=== PATIENT | male | born 1980 | race Caucasian/White ===

== ENCOUNTER → 2024-01-28 10:37 | Outpatient (REF) | payer OTHER, SELFPAY ==
[2024-01-28 12:29] LABS: TSH Reflex To Free T4 1.28 uIU/ml (0.47-4.68)
[2024-01-30 05:53] LABS: IgA 312 mg/dl (70-400)
== END ==
LOC: REG 10:37
PROVIDERS: ATTENDING PHYSICIAN Internal Medicine
DX: R19.4 Change in bowel habit (principal)
CPT/HCPCS: 36415; 82784; 84443

== ENCOUNTER 2024-02-10 22:26 | Emergency (ER) | payer OTHER, SELFPAY ==
[2024-02-10 22:26] VITALS: BMI 25.7
[2024-02-10 22:34] VITALS: BP 148/96
--- NOTE | 2024-02-10 22:43 | ED.GENMED ---
History of Present Illness
General
Chief Complaint: Abdominal Pain
Time Seen by Provider: 02/10/24 22:40
Travel History
Have you had any contact with someone who has COVID-19?: No
Do you have any symptoms of coronavirus? Fever > 100 degrees, chills, cough, shortness of breath, sore throat, loss of taste or smell, muscle aches, or headache?: No
History of Present Illness
History of Present Illness:
HPI: Patient presents with abdominal pain. He reports having pain in the right inguinal region after his right inguinal hernia repair for about 5 years but then was doing fine for the past 10 years or so. More recently he has been having some
increasing discomfort to the right inguinal region that now radiates to the right testicular region. He saw GI recently and is planning to have endoscopy and colonoscopy in the future. His father has a history of colon cancer. No significant
vomiting or diarrhea but does report some nausea.
EXAM:
GENERAL: Well appearing in no distress
HEENT: Moist oral mucosa
CARDIOVASCULAR: No murmurs, normal heart rate, regular rhythm, No chest wall tenderness
PULMONARY: No respiratory distress, breath sounds are clear and equal
ABDOMEN: Soft with no peritoneal signs, no significant tenderness however there is a small area of tenderness in the right mid inguinal region but no definite palpable hernia
NEUROLOGIC: Excellent strength all extremities, no coordination deficits
PSYCHIATRIC: Appropriate mental status, normal insight and judgement, appears somewhat anxious
EXTREMITIES: Nontender, no edema, moves all extremities equally
SKIN: No rash, no lesions
TIME OF INITIAL ENCOUNTER: 10:50 PM
NUMBER AND COMPLEXITY OF PROBLEMS ADDRESSED AT THE ENCOUNTER
� Chronic conditions affecting care: Had right inguinal hernia repair several years ago
� Acute Exacerbation and/or Progression of Chronic Illness: This is an acute problem
� Differential Diagnosis includes: Hernia mesh complication, recurrence of hernia, appendicitis unlikely, ureteral stone unlikely,
AMOUNT AND/OR COMPLEXITY OF DATA TO BE REVIEWED AND ANALYZED
� I performed an independent evaluation of and my interpretation is:
EKG:
CT: I personally reviewed CT imaging and see no acute abnormality; also radiologist notes no acute findings
X-rays:
Laboratory Studies: White count 10.5, hemoglobin 16.1, chemistries unremarkable, urinalysis unremarkable
Other:
� Review of other/old records: I reviewed records, the patient was seen here with peritonitis in 2019
� Clinical information was obtained by an independent historian: None needed
� Prescriptions/Medications Considered but not given:
� Further testing considered but not performed:
RISK OF COMPLICATIONS AND/OR MORBIDITY OR MORTALITY OF PATIENT MANAGEMENT
� Social determinants of health affecting care: Lives at home
� Discussion with other providers:
� Escalation of care including admission/observation vs risk of discharge considered: Obtain CT imaging. He was given IV fluids, Zofran, Toradol, will check labs. CT imaging unremarkable. He appears fairly comfortable on
reassessment at 2:05 AM. He will follow-up with GI.
Past History
Past History
ED Past Medical History: None and Other (Lymes disease �2, recent diagnosis of psoriasis treated with topical medication)
ED Past Surgical History: Other (Right inguinal herniorrhaphy)
Social History
Tobacco: Non-smoker
Personal: Partner
Living: with family
Employment: Employed
Phy Exam
Physical Exam
Physical Exam:
See HPI
Course
Orders/Labs/Results
Orders:
Orders
02/10/24 22:53
0.9% Sodium Chloride 1000 ml [Nss] 1,000 ml IV BOLUS
Iohexol [Omnipaque] See Protocol PO NOW STA
Ketorolac [Toradol] 15 mg IV NOW STA
Ondansetron Injectable [Zofran] 4 mg IV NOW STA
02/10/24 23:37
Complete Blood Count/With Diff Urgent
Comprehensive Metabolic Panel Urgent
Lipase Urgent
02/11/24 00:44
Urinalysis Reflex To Culture Urgent
Date Specimen was Collected: 02/11/24
Time Specimen was Collected: 00:34
02/11/24 01:00
CT Abd/pel W Iv And Oral Contr Urgent
Reason For Exam: R groin pain worsening; prior hernia repair
Abnormal Lab Results
02/10/24
23:37
MPV 11.2 H fL
(7.4-10.4)
Absolute Neuts (auto) 7.0 H 10^3/uL
(1.4-6.5)
Absolute Monos (auto) 0.7 H 10^3/uL
(0.1-0.6)
02/10/24 23:37
02/10/24 23:37
Vital Signs
Initial and Last Documented VS:
Initial Vital Signs
Temp Pulse Resp BP Pulse Ox
97.8 F 86 18 148/96 98
02/10/24 22:34 02/10/24 22:34 02/10/24 22:34 02/10/24 22:34 02/10/24 22:34
Last Documented Vital Signs
Temp Pulse Resp BP Pulse Ox
97.8 F 86 18 148/96 98
02/10/24 22:34 02/10/24 22:34 02/10/24 22:34 02/10/24 22:34 02/10/24 22:34
*Critical Care Note
Total Time (30-74mins, 75-104mins- exclusive of procedures): Not Applicable
ED Attending Note
-
Portions of this chart may have been created with voice recognition software.� Occasional wrong word or��sound alike� substitutions may have occurred due to the inherent limitations of voice recognition software.
Discharge Plan
Departure
Prescriptions:
No Action
clindamycin HCl 150 MG capsule
3 cap PO TID Qty: 63 0RF
amoxicillin-pot clavulanate 1 TABLET tablet
1 tab PO Q12 Qty: 14 0RF
prednisone 20 MG tablet
40 mg PO DAILY Qty: 10 0RF
Referrals:
UNKNOWN - PT DOES,NOT KNOW [Family Provider] -
Interventions
Interventions:
*Risk Screen - Suicide Last Done: 02/10/24 22:34
*Neglect/Abuse Screening Last Done: 02/10/24 22:34
Discharge Date and Time
Print Language: POLISH
[2024-02-10] MEDS: OMNIPAQUE 50 ML PO (23:18)
[2024-02-10] MEDS: NSS 1000 IV (23:40)
[2024-02-10] MEDS: TORADOL 15 MG IV (23:42)
[2024-02-10] MEDS: ZOFRAN 4 MG IV (23:42)
[2024-02-10 23:56] LABS: % Basophils 0.9 % (0-2); % Eosinophils 1.9 % (0-6); % Immature Granulocytes 0.1 % (0-0.5); % Lymphocytes 23.5 % (20.5-51.1); % Monocytes 7.1 % (1.7-9.3); % Neutrophils 66.5 % (42.2-75.2); Absolute Basophils 0.1 10^3/uL (0-0.2); Absolute Eosinophils 0.2 10^3/uL (0-0.7); Absolute Lymphocytes 2.5 10^3/uL (1.2-3.4); Absolute Monocytes 0.7 10^3/uL (0.1-0.6); Hematocrit 43.5 % (39.0-52.0); Hemoglobin 16.1 g/dL (13.0-18.0); Mean Corpuscular Hgb 30.7 pg (27.0-31.0); Mean Corpuscular Volume 82.9 fL (80.0-94.0); Mean Platelet Volume 11.2 fL (7.4-10.4); Nucleated Red Blood Cells % 0 % (-); Platelet Count 197 10^3/uL (130-400); Red Blood Cell Count 5.25 10^6/uL (4.70-6.10); Red Cell Dist. Width 12.2 % (11.5-14.5); White Blood Cell Count 10.5 10^3/uL (4.8-10.8)
[2024-02-11] VITALS: BP 136/88
[2024-02-11 00:09] LABS: ALT (SGPT) 26 U/L (0-50); AST (SGOT) 30 U/L (17-59); Albumin 4.5 g/dl (3.5-5.0); Alkaline Phosphatase 109 U/L (38-126); Blood Urea Nitrogen 15 mg/dl (9-20); Calcium 9.6 mg/dl (8.4-10.2); Carbon Dioxide 25 mmol/L (22-30); Chloride 105 mmol/L (98-107); Glucose 91 mg/dl (70-99); Lipase 55 U/L (23-300); Potassium 3.7 mmol/L (3.5-5.1); Sodium 139 mmol/L (135-145); Total Bilirubin 0.9 mg/dl (0.2-1.3); Total Protein 7.4 g/dl (6.3-8.2); eGFR > 60.00
[2024-02-11 00:56] LABS: Urine Albumin Negative (Neg - Trace); Urine Bilirubin Negative (Negative); Urine Character Clear (Clear); Urine Color Yellow; Urine Glucose Negative (Negative); Urine Ketone Negative (Negative); Urine Leukocyte Negative (Negative); Urine Nitrite Negative (Negative); Urine Occult Blood Negative (Negative); Urine Urobilinogen Negative (Neg - 1+)
[2024-02-11 01:00] VITALS: BP 138/80
[2024-02-11 02:00] VITALS: BP 132/82
== END 2024-02-11 03:02 | disposition home or self-care (01) ==
LOC: EMR 22:26
PROVIDERS: EMERGENCY PHYSICIAN Emergency Medicine
DX: R10.31 Right lower quadrant pain (principal)
CPT/HCPCS: 99285; 96374; 96375; 96361; 74177; 80053; 81003; 83690; 85025; Q9967

== ENCOUNTER → 2024-02-21 06:25 | Day surgery (SDC) | payer OTHER, SELFPAY | LOC: GI 06:25 | PROVIDERS: ATTENDING PHYSICIAN Internal Medicine | DX: K52.9 Noninfective gastroenteritis and colitis, unspecified (principal); R19.4 Change in bowel habit; K63.5 Polyp of colon; D12.3 Benign neoplasm of transverse colon; R12 Heartburn; K22.89 Other specified disease of esophagus; K31.89 Other diseases of stomach and duodenum; K20.91 Esophagitis, unspecified with bleeding; D12.4 Benign neoplasm of descending colon; K29.50 Unspecified chronic gastritis without bleeding; K31.9 Disease of stomach and duodenum, unspecified | CPT/HCPCS: 45380; 43239; 88305; 88312; 88342 ==

== ENCOUNTER → 2024-07-27 11:34 | Outpatient (REF) | payer OTHER, SELFPAY ==
[2024-07-27 12:11] LABS: % Basophils 1.3 % (0-2); % Immature Granulocytes 0.3 % (0-0.5); % Lymphocytes 28.5 % (20.5-51.1); % Monocytes 8.4 % (1.7-9.3); % Neutrophils 57.5 % (42.2-75.2); Absolute Basophils 0.1 10^3/uL (0-0.2); Absolute Eosinophils 0.2 10^3/uL (0-0.7); Absolute Lymphocytes 1.7 10^3/uL (1.2-3.4); Absolute Monocytes 0.5 10^3/uL (0.1-0.6); Absolute Neutrophils 3.4 10^3/uL (1.4-6.5); Hematocrit 47.4 % (39.0-52.0); Hemoglobin 16.4 g/dL (13.0-18.0); Mean Corp Hgb Conc. 34.6 g/dL (33.0-37.0); Mean Corpuscular Hgb 30.1 pg (27.0-31.0); Mean Corpuscular Volume 87.1 fL (80.0-94.0); Mean Platelet Volume 11.8 fL (7.4-10.4); Nucleated Red Blood Cells % 0 % (-); Platelet Count 181 10^3/uL (130-400); Red Blood Cell Count 5.44 10^6/uL (4.70-6.10); Red Cell Dist. Width 12.5 % (11.5-14.5); White Blood Cell Count 5.9 10^3/uL (4.8-10.8)
[2024-07-27 12:38] LABS: ALT (SGPT) 25 U/L (0-50); AST (SGOT) 26 U/L (17-59); Albumin 4.6 g/dl (3.5-5.0); Alkaline Phosphatase 126 U/L (38-126); Blood Urea Nitrogen 12 mg/dl (9-20); Calcium 9.3 mg/dl (8.4-10.2); Carbon Dioxide 27 mmol/L (22-30); Chloride 105 mmol/L (98-107); Glucose 91 mg/dl (70-99); Potassium 5.2 mmol/L (3.5-5.1); Sodium 144 mmol/L (135-145); Total Bilirubin 0.5 mg/dl (0.2-1.3); Total Protein 7.5 g/dl (6.3-8.2); eGFR > 60.00
[2024-07-27 13:17] LABS: HIV Combo Negative (Negative)
[2024-07-27 13:54] LABS: Hepatitis B Surface Antibody Positive
[2024-07-27 14:44] LABS: Hepatitis C Antibody Negative (Negative)
[2024-07-29 10:51] LABS: Quantiferon Mitogen minus NIL 9.96 IU/mL; Quantiferon NIL 0.04 IU/mL; Quantiferon Plus TB1 minus NIL 0.01 IU/mL (<=0.34); Quantiferon Plus TB2 minus NIL 0.01 IU/mL (<=0.34); Quantiferon TB Gold Plus Negative (Negative)
== END ==
LOC: REG 11:34
PROVIDERS: ATTENDING PHYSICIAN Dermatology
DX: Z79.899 Other long term (current) drug therapy (principal)
CPT/HCPCS: 36415; 80053; 85025; 86480; 86706; 86803; 87389

== ENCOUNTER 2024-08-23 09:56 | Emergency (ER) | payer OTHER, SELFPAY ==
[2024-08-23 10:15] VITALS: BP 138/89
--- NOTE | 2024-08-23 13:23 | ED.GENMED ---
History of Present Illness
<Juanita Padgett PA-C - Last Filed: 08/23/24 16:56>
General
Chief Complaint: Abdominal Pain
Source: patient
Exam Limitations: none
Time Seen by Provider: 08/23/24 13:01
Nursing documentation reviewed up to this point in time: agreed with
History of Present Illness
History of Present Illness:
Patient is a 43 year old male presenting to the emergency department for evaluation of right groin/leg pain. Patient states he woke up about 3 days ago with pain in his right inguinal crease/right upper thigh. Pain is worse with movement, mostly
flexion of right hip. He feels symptoms specifically while walking upstairs. He feels that his right leg is becoming much weaker and he is unable to fully lift his leg up. Patient denies any numbness/tingling in right lower extremity. Patient
denies any radiation of pain into his testicles. Patient denies any urinary symptoms although he did feel like his urine was slightly darker over the past few days. He denies any urethral discharge. patient denies any fever, chills,
nausea/vomiting, changes in bowel habits. Patient denies any no inciting injury or trauma.
Patient not concerned for any STDs.
Of note�patient does have a history of a right inguinal hernia repair many years ago. However�he states that this feels much different.
Patient currently following with GI for some changes in the bowel habits. He did have a recent colonoscopy and endoscopy without any abnormal findings. He has history of psoriatic arthritis and is due to begin Tremfya soon. He presents to rule a
possible infectious etiology prior to starting Tremfya.
Past History
<Juanita Padgett PA-C - Last Filed: 08/23/24 16:56>
Past History
ED Past Medical History: None and Other (Lymes disease �2, recent diagnosis of psoriasis treated with topical medication)
ED Past Surgical History: Other (Right inguinal herniorrhaphy)
Social History
Tobacco: Non-smoker
Personal: Partner
Living: with family
Employment: Employed
Review of Systems
<Juanita Padgett PA-C - Last Filed: 08/23/24 16:56>
Review of Systems
Allergies reviewed?: Yes
All Other Systems: ROS reviewed and negative except as documented in HPI and ROS
Phy Exam
<Juanita Padgett PA-C - Last Filed: 08/23/24 16:56>
Physical Exam
Physical Exam:
Vitals: Patient's vital signs are stable. Afebrile
General: Patient is very well appearing, no acute distress. Nontoxic appearing
Skin: Warm and dry, no rashes or lesions
Head: Normocephalic, atraumatic
Eyes: Sclera nonicteric. EOMs intact. No nystagmus.
Throat: Protecting airway
Neck: Normal ROM, no cervical spine tenderness, no meningismus
Cardiac: Regular rate and rhythm, no murmurs.
Pulm: Normal respiratory effort, no wheezes, rales, rhonchi heard on exam.
Abdomen: Abdomen soft. No abdominal tenderness. Mild tenderness of right inguinal crease without any palpable hernia.
Back: No midline spinal tenderness. No CVA tenderness or rash.
Extremities: Some minimal pain with both passive and active rotation of right hip. No deformity of RLE. Full active ROM in right knee and right ankle. Palpable right DP pulses. Capillary refill WNL.
Neuro: AAOx3. Grossly intact. Steady gait.
Psychiatric: Normal affect.
Course
<Juanita Padgett PA-C - Last Filed: 08/23/24 16:56>
Orders/Labs/Results
Orders:
Orders
08/23/24 13:22
Urinalysis Reflex To Culture Urgent
Date Specimen was Collected: 08/23/24
Time Specimen was Collected: 13:47
Ketorolac [Toradol] 15 mg IV NOW STA
Hip, Right 2-3 Views [CR Hip - RT w/wo Pel 2-3 Vw*] Urgent
Comment:
Reason For Exam: right inguinal pain, right leg weakness
Include a pelvis x-ray?: Yes
08/23/24 13:51
Complete Blood Count/With Diff Urgent
Comprehensive Metabolic Panel Urgent
Erythrocyte Sed Rate Urgent
08/23/24 15:34
Add On- LAB Urgent
Tests Added?: ESR, CRP
Abnormal Lab Results
08/23/24
13:51
MPV 11.9 H fL
(7.4-10.4)
Absolute Neuts (auto) 7.5 H 10^3/uL
(1.4-6.5)
Neutrophils % 78.0 H %
(42.2-75.2)
Lymphocytes % 14.5 L %
(20.5-51.1)
08/23/24 13:51
08/23/24 13:51
Vital Signs
Initial and Last Documented VS:
Initial Vital Signs
Temp Pulse Resp BP Pulse Ox
98.7 F 86 18 138/89 99
08/23/24 10:15 08/23/24 10:15 08/23/24 10:15 08/23/24 10:15 08/23/24 10:15
Last Documented Vital Signs
Temp Pulse Resp BP Pulse Ox
98.7 F 78 16 112/72 98
08/23/24 10:15 08/23/24 15:40 08/23/24 15:40 08/23/24 15:40 08/23/24 15:40
<Davy Matthews, - Last Filed: 08/23/24 17:56>
Orders/Labs/Results
Orders:
Orders
08/23/24 13:22
Urinalysis Reflex To Culture Urgent
Date Specimen was Collected: 08/23/24
Time Specimen was Collected: 13:47
Ketorolac [Toradol] 15 mg IV NOW STA
Hip, Right 2-3 Views [CR Hip - RT w/wo Pel 2-3 Vw*] Urgent
Comment:
Reason For Exam: right inguinal pain, right leg weakness
Include a pelvis x-ray?: Yes
08/23/24 13:51
Complete Blood Count/With Diff Urgent
Comprehensive Metabolic Panel Urgent
Erythrocyte Sed Rate Urgent
08/23/24 15:34
Add On- LAB Urgent
Tests Added?: ESR, CRP
Abnormal Lab Results
08/23/24
13:51
MPV 11.9 H fL
(7.4-10.4)
Absolute Neuts (auto) 7.5 H 10^3/uL
(1.4-6.5)
Neutrophils % 78.0 H %
(42.2-75.2)
Lymphocytes % 14.5 L %
(20.5-51.1)
08/23/24 13:51
08/23/24 13:51
Vital Signs
Initial and Last Documented VS:
Initial Vital Signs
Temp Pulse Resp BP Pulse Ox
98.7 F 86 18 138/89 99
08/23/24 10:15 08/23/24 10:15 08/23/24 10:15 08/23/24 10:15 08/23/24 10:15
Last Documented Vital Signs
Temp Pulse Resp BP Pulse Ox
98.7 F 78 16 112/72 98
08/23/24 10:15 08/23/24 15:40 08/23/24 15:40 08/23/24 15:40 08/23/24 15:40
<Juanita Padgett PA-C - Last Filed: 08/23/24 16:56>
MDM/Problems Addressed
Differential Diagnosis Includes:
Not limited to: muscle strain, peripheral neuropathy, osteoarthritis, UTI, kidney stone, inguinal hernia, etc
MDM/Problems Addressed:
43 year old male presenting with atraumatic right hip pain worsening over the past few days. No associated infectious or abdominal symptoms. No urinary symptoms. No known trauma or inciting event. Does have remote history of right inguinal
hernia repair although states feels different. Patient afebrile with stable vital signs on arrival to the emergency department. On exam�patient is very well-appearing, in no apparent distress. Benign abdominal exam. No palpable hernia. Normal
testicular exam. No obvious erythema or deformity of right hip. He does have mild pain with right hip rotation although has full range of motion. Right lower extremity neurovascularly intact. Differential very broad at this time although very
low suspicion for intra-abdominal pathology given history and benign abdominal exam. Exam most consistent with likely musculoskeletal etiology. However�given patient is due to start Tremfya shortly for psoriatic arthritis and has concern for
possible infectious process�will obtain screening labs. Will check urinalysis. Will obtain x-ray of right hip. Toradol for pain.
Update: Labs reviewed. No leukocytosis. Chemistry without any clinically significant abnormalities. X-ray of right hip without any acute abnormalities. At this point�overall suspicion for infectious process is very low given patient is afebrile
with no leukocytosis. It is possible that this could be possible psoriatic arthritis flare/inflammatory process of hip. Patient unable to provide urine at this time with a very low suspicion for urinary source given patient is asymptomatic with
normal testicular exam. Will initiate steroid course. Otherwise feel patient stable for outpatient management. He will follow-up with primary care and potentially rheumatology. Patient seen attending physician.
Chronic conditions affecting care:
Right inguinal hernia repair
Acute Exacerbation and/or Progression of Chronic Illness:
N/A
<Juanita Padgett PA-C - Last Filed: 08/23/24 16:56>
*Radiology
Radiology exam reviewed: preliminary read by ED provider (Reviewed by me-no acute abnormality of right hip) and radiology read reviewed
*Pulse Oximetry
Patient hypoxic: no
*EKG
Interpreted by ED Provider?: NA
*Ic Design Manager Interpretation
Rate: Ic Design Manager- N/A
*Critical Care Note
Total Time (30-74mins, 75-104mins- exclusive of procedures): Not Applicable
Data Reviewed
Review of Other/Old Records Reveals: Radiology Studies (Abdominal CT from 02/11/2024 with no acute abnormalities or evidence of hernia)
Source: previous hospital records
Further Testing Considered But Not Given:
Considered CT abdomen/pelvis although very low suspicion for infectious or intra-abdominal pathology
ED Attending Note
<Juanita Padgett PA-C - Last Filed: 08/23/24 16:56>
-
Portions of this chart may have been created with voice recognition software.� Occasional wrong word or��sound alike� substitutions may have occurred due to the inherent limitations of voice recognition software.
<Davy Matthews DO - Last Filed: 08/23/24 17:56>
ED Attending Note
Patient seen and examined by attending physician: Yes
I performed the substantive portion of visit, reviewed & personally made and approve the management plan that is documented in note by myself or ARTHUR.: Yes
ED Attending Note:
43-year-old female who presents with right groin pain/hip pain. Patient states she has similar event sometime ago when he was having bowel issues. He does admit that has been cared for for psoriasis that is getting worse and is scheduled to start
on medication for it. Patient states that it seems to get worse as the psoriasis gets worse. States is having difficulty lifting leg. No fevers. No injury. He did have a colonoscopy to be evaluated for his longstanding stool and bowel changes.
Exam: Awake and alert, normal pulses to the right groin. Scrotum normal penis normal. Normal distal pulses to lower EXTR. No edema. Is able to flex at the hip actively and passively. No pain with passive internal and external rotation.
Assessment plan: Suspect inflammatory reactive issue at the right joint. Trial steroid course. Certainly no evidence of septic arthritis. Outpatient follow-up recommended. No hernia palpated. No lymph nodes palpated.
Discharge Plan
Departure
Patient Disposition: Home (Routine Discharge)
Date of Disposition: 08/23/24
Time of Disposition: 16:15
Patient with high blood pressure during this ER visit?: No
Discharge Problem:
Hip pain, right
Instructions: Hip Pain ED
Prescriptions:
New
prednisone 10 mg Tablet
See Rx Instructions .ROUTE .COMPLEX Qty: 30 0RF
Rx Instructions:
Take By Mouth:
40 mg daily x3 days, 30 mg daily x3 days,
20 mg daily x3 days, 10 mg daily x3 days.
No Action
clindamycin HCl 150 MG capsule
3 cap PO TID Qty: 63 0RF
amoxicillin-pot clavulanate 1 TABLET tablet
1 tab PO Q12 Qty: 14 0RF
prednisone 20 MG tablet
40 mg PO DAILY Qty: 10 0RF
Referrals:
NONE,* [Family Provider] - Follow up in 1 week
Activity Restrictions/Additional Instructions:
RETURN TO THE EMERGENCY DEPARTMENT WITH ANY FEVERS, INTRACTABLE PAIN, SEVERE ABDOMINAL PAIN, DIFFICULTY AMBULATING, NUMBNESS/TINGLING IN LOWER EXTREMITY, WORSENING IN CURRENT SYMPTOMS, OR ANY OTHER CONCERNS
-A prescription for steroid course has been sent to your pharmacy. Take as directed.
-Continue to take Motrin and/or Tylenol as needed for discomfort.
-Follow-up with your primary care/GI doctor as needed for further evaluation/management.
Monitor your symptoms closely return to the emergency department any acute worsening/new symptoms or any signs of infection
Interventions
Interventions:
*Risk Screen - Suicide Last Done: 08/23/24 10:15
*General Assessment Last Done: 08/23/24 10:15
*Neglect/Abuse Screening Last Done: 08/23/24 10:15
ED- Fall Risk Assessment Last Done: 08/23/24 14:00
*ED COVID-19 Vaccine History Last Done: 08/23/24 10:15
[facility]-Tillbt-Qvjnopieju Assessment Last Done: 08/23/24 14:00
Discharge Date and Time
Print Language: KAZAKH
[2024-08-23 14:14] LABS: % Basophils 0.5 % (0-2); % Eosinophils 0.9 % (0-6); % Immature Granulocytes 0.3 % (0-0.5); % Lymphocytes 14.5 % (20.5-51.1); % Monocytes 5.8 % (1.7-9.3); Absolute Basophils 0.1 10^3/uL (0-0.2); Absolute Eosinophils 0.1 10^3/uL (0-0.7); Absolute Lymphocytes 1.4 10^3/uL (1.2-3.4); Absolute Monocytes 0.6 10^3/uL (0.1-0.6); Absolute Neutrophils 7.5 10^3/uL (1.4-6.5); Hematocrit 44.6 % (39.0-52.0); Hemoglobin 15.7 g/dL (13.0-18.0); Mean Corp Hgb Conc. 35.2 g/dL (33.0-37.0); Mean Corpuscular Hgb 30.4 pg (27.0-31.0); Mean Corpuscular Volume 86.3 fL (80.0-94.0); Mean Platelet Volume 11.9 fL (7.4-10.4); Nucleated Red Blood Cells % 0 % (-); Platelet Count 156 10^3/uL (130-400); Red Blood Cell Count 5.17 10^6/uL (4.70-6.10); Red Cell Dist. Width 12.6 % (11.5-14.5); White Blood Cell Count 9.6 10^3/uL (4.8-10.8)
[2024-08-23] MEDS: TORADOL 15 MG IV (14:18)
[2024-08-23 14:34] LABS: ALT (SGPT) 33 U/L (0-50); AST (SGOT) 34 U/L (17-59); Albumin 4.4 g/dl (3.5-5.0); Alkaline Phosphatase 109 U/L (38-126); Blood Urea Nitrogen 14 mg/dl (9-20); Calcium 9.1 mg/dl (8.4-10.2); Carbon Dioxide 24 mmol/L (22-30); Chloride 105 mmol/L (98-107); Glucose 85 mg/dl (70-99); Sodium 137 mmol/L (135-145); Total Bilirubin 0.6 mg/dl (0.2-1.3); Total Protein 6.9 g/dl (6.3-8.2); eGFR > 60.00
[2024-08-23 15:40] VITALS: BP 112/72
[2024-08-23 16:11] LABS: Erythrocyte Sed Rate 7 mm/hour (0-20)
[2024-08-23 19:58] VITALS: BP 142/82
== END 2024-08-23 16:25 | disposition home or self-care (01) ==
LOC: EMR 09:56
PROVIDERS: Physician Assistant; EMERGENCY PHYSICIAN Emergency Medicine
DX: M25.551 Pain in right hip (principal)
CPT/HCPCS: 99284; 96374; 73502; 80053; 85025; 85652